=== PATIENT | male | born 1990 | race Caucasian/White ===

== ENCOUNTER 2019-04-09 22:51 | Emergency (ER) | payer MEDICAID ==
[~2019-04-09] VITALS: Ht 188 cm; Wt 77.3 kg
[2019-04-10 02:30] VITALS: BP 123/68
[2019-04-10] MEDS ORDERED: KETOROLAC TROMETHAMINE 60 MG/2 ML VIAL IM ONE (02:30)
== END 2019-04-10 02:39 | disposition home or self-care (01) ==
LOC: EMS 22:52
DX: K02.9 Dental caries, unspecified (principal); K08.89 Other specified disorders of teeth and supporting structures
CPT/HCPCS: 96372; 99283; J1885